=== PATIENT | female | born 1955 | race African-American/Black ===

== ENCOUNTER 2022-02-26 14:24 | Emergency (ER) | payer MEDICAID ==
[~2022-02-26] VITALS: Ht 175.3 cm; Wt 66.4 kg
[2022-02-26] MEDS ORDERED: fentaNYL PF VIAL 100 MCG/2 ML VIAL IV PRN (14:45)
[2022-02-26] MEDS ORDERED: IV NORMAL SALINE 1000ML BAG 1,000 ML IV ONE (14:45)
[2022-02-26] MEDS ORDERED: METOCLOPRAMIDE HCL 10 MG/2 ML VIAL. IVP ONE (14:45)
[2022-02-26] MEDS ORDERED: ONDANSETRON PF 4 MG/2 ML VIAL. IVP ONE (14:45)
--- NOTE | 2022-02-26 15:07 | RAD ---
AP, lateral and oblique views of the right ankle. No comparison is available. Indication: Rolled ankle yesterday now with pain. No fracture, subluxation or dislocation is seen. The ankle mortise is intact. There is lateral soft t issue swelling seen over the lateral malleolus. Cannot exclude ligamentous injury. Impression: Soft tissue swelling laterally, cannot exclude ligamentous injury. Electronically signed by: Luis Benavides MD (02/26/2022 3:05 PM) [facility]
[2022-02-26 15:54] LABS: BASO # 0.1 x10^3/uL (0.0-0.2); BASO % 1 % (0-3); EOS % 0 % (0-3); LYMPH # 0.7 x10^3/uL (1.0-4.8); LYMPH % 10 % (24-48); MEAN CORPUSCULAR HEMOGLOBIN 25 pg (25-35); MEAN CORPUSCULAR HGB CONC 32 g/dL (31-37); MEAN CORPUSCULAR VOLUME 78 fL (79-100); MONO # 0.1 x10^3/uL (0.0-1.1); MONO % 2 % (0-9); NEUT # 6.3 x10^3/uL (1.8-7.7); NEUT % 87 % (31-73); PLATELET COUNT 317 x10^3/uL (140-400); RED BLOOD COUNT 4.35 x10^6/uL (3.50-5.40); WHITE BLOOD COUNT 7.3 x10^3/uL (4.0-11.0)
[2022-02-26 16:06] LABS: CREATININE 0.9 mg/dL (0.6-1.0); GFR 75.8; POTASSIUM 4.2 mmol/L (3.5-5.1)
[2022-02-26] MEDS ORDERED: CONTRAST GIVEN. MC PRN (16:15)
[2022-02-26] MEDS ORDERED: IOHEXOL 300 MG/ML 100ML VIAL. IV ONE (16:15)
[2022-02-26 16:19] LABS: ALBUMIN 3.5 g/dL (3.4-5.0); ALBUMIN/GLOBULIN RATIO 0.8 (1.0-1.7); MAGNESIUM 2.1 mg/dL (1.8-2.4); TOTAL BILIRUBIN 0.5 mg/dL (0.2-1.0)
[2022-02-26 16:35] LABS: BARBITURATES NEG (NEG); BENZODIAZEPINES NEG (NEG); CANNABINOIDS POS (NEG); COCAINE POS (NEG); METHADONE NEG (NEG); OPIATES NEG (NEG); PHENCYCLIDINE NEG (NEG)
[2022-02-26 16:50] LABS: AMPHETAMINE/METHAMPHETAMINE NEG (NEG)
--- NOTE | 2022-02-26 16:52 | RAD ---
EXAMINATION: CT ABDOMEN+PELVIS W. Technique: Axial images with coronal and sagittal reconstructions are performed of abdomen and pelvis with intravenous contrast. 75 mL of Omnipaque 300 was administered intravenously. One or more of the following radiation dose reduction techniques was used: automated exposure control , adjustment of mA and/or KV according to patient size, and/or utilization of iterative reconstructio n technique. HISTORY: 66 years Female Reason: Abdominal pain, N/V / COMPARISON: None. FINDINGS: The lung bases a demonstrate groundglass opacities more on the left side. It is uncertain if this rep resents atelectasis or pneumonitis. The liver, spleen, pancreas and adrenal glands appear unremarkable. The gallbladder demonstrates no c alcified stones. The kidneys have a symmetric enhancement. There is a 6 mm hypodense lesion in the mid the lower from right kidney, too small to accurately characterize. No hydronephrosis. The abdominal aorta is normal in caliber. No para-aortic significantly enlarged lymph node is seen. There is no bowel obstruction. There is diverticulosis in the descending colon. No diverticulitis. Mi ld distention of the stomach is seen with the air-fluid level. This could relate to an recent meal. N o significant dilatation.. The appendix is normal. The uterus and adnexa appear grossly unremarkable. The urinary bladder appear unremarkable. There is no significant free fluid or fluid collection seen in the abdomen or pelvis. The osseous structures demonstrate vacuum phenomenon at L5/S1 disc. IMPRESSION: 1. Nonspecific groundglass opacity seen in the lung bases could relate to atelectasis or atypical pne umonitis. Correlate clinically and with PA and lateral views of the chest. 2. Diverticulosis. No diverticulitis. Electronically signed by: Jules Noe MD (02/26/2022 4:49 PM) [id number]
[2022-02-26 16:59] LABS: BACTERIA,URINE MANY /HPF (0-FEW)
--- NOTE | 2022-02-26 17:47 | RAD ---
XR CHEST 1V INDICATION: cough . COMPARISON STUDY: 02/09/2009. FINDINGS: Life Support Devices: Right IJ Port-A-Cath. Lungs: Normal lung volume. No confluent consolidation. Prominent interstitial marking. Pleura: No pleural effusion or pneumothorax. Heart and Mediastinum: Normal cardiac size. Atherosclerosis of the thoracic aorta. IMPRESSION: Prominent interstitial markings, which could reflect edema or atypical infection in the acute setting . No confluent consolidation. Electronically signed by: Carlos Levin MD (02/26/2022 5:44 PM) [facility]
[2022-02-26 18:07] VITALS: BP 171/98
--- NOTE | 2022-02-26 18:41 | PHYS DOC ---
Past Medical History Additional Past Medical Histor: lung and breast cancer Past Surgical History: No Surgical History Smoking Status: Current Every Day Smoker Additional Information: < 0.5 PPD Alcohol Use: None General Adult EDM: Chief Complaint: ABDOMINAL PAIN HPI: HPI: Patient is a 66 year old female with a history of breast cancer, lung cancer, currently on chemo last treatment 2 weeks ago with Keytruda presenting to the ED today with multiple complaints. Patient states she has had generalized abdominal pain worse at the epigastric, rated at 10 out of 10 described as sharp and intermittent symptoms have been going on since this morning. She is also complaining of nausea and vomiting. She states yesterday she smoked crack and marijuana. She is also complaining of 10 out of 10 right ankle pain that began yesterday after she tripped and rolled her ankle walking down some steps. Patient describes the pain as sharp and intermittent. States the pain is worse on weightbearing though she states she is able to ambulate. Review of Systems: Review of Systems: Constitutional: Denies fever or chills. [] Eyes: Denies change in visual acuity. [] HENT: Denies nasal congestion or sore throat. [] Respiratory: Denies cough or shortness of breath. [] Cardiovascular: Denies chest pain or edema. [] GI: Reports generalized abdominal pain, nausea vomiting, denies any diarrhea : Denies dysuria. [] Musculoskeletal: Reports right ankle pain Integument: Denies rash. [] Neurologic: Denies headache, focal weakness or sensory changes. [] Psychiatric: Denies depression or anxiety. [] Heart Score: C/O Chest Pain: N/A Risk Factors: Risk Factors: DM, Current or recent (<one month) smoker, HTN, HLP, family history of CAD, obesity. Risk Scores: Score 0 - 3: 2.5% MACE over next 6 weeks - Discharge Home Score 4 - 6: 20.3% MACE over next 6 weeks - Admit for Clinical Observation Score 7 - 10: 72.7% MACE over next 6 weeks - Early Invasive Strategies Current Medications: Current Medications Medications (Trade) Dose Ordered Sig/Jayla Start Time Stop Time Status Last Admin Dose Admin Fentanyl Citrate (Fentanyl 2ml Vial) 50 mcg PRN Q15MIN PRN 02/26/22 14:45 02/27/22 14:44 02/26/22 15:52 50 MCG Info (CONTRAST GIVEN -- Rx MONITORING) 1 each PRN DAILY PRN 02/26/22 16:15 02/28/22 16:14 Iohexol (Omnipaque 300 Mg/ml) 75 ml 1X ONCE 02/26/22 16:15 02/26/22 16:16 DC 02/26/22 16:30 75 ML Metoclopramide HCl (Reglan Vial) 10 mg 1X ONCE 02/26/22 14:45 02/26/22 14:51 DC 02/26/22 15:52 10 MG Ondansetron HCl (Zofran) 4 mg 1X ONCE 02/26/22 14:45 02/26/22 14:51 DC 02/26/22 15:52 4 MG Sodium Chloride 1,000 ml @ 1,000 mls/hr 1X ONCE 02/26/22 14:45 02/26/22 15:44 DC 02/26/22 15:53 1,000 MLS/HR Allergies: Allergies: Allergies Coded Allergies Type Severity Reaction Last Updated Verified No Known Drug Allergies 02/26/22 No Physical Exam: PE: Constitutional: Well developed, well nourished, no acute distress, non-toxic appearance. [] HENT: Normocephalic, atraumatic, bilateral external ears normal, oropharynx moist, no oral exudates, nose normal. [] Eyes: PERRLA, EOMI, conjunctiva normal, no discharge. [] Neck: Normal range of motion, no tenderness, supple, no stridor. [] Cardiovascular:Heart rate regular rhythm, no murmur [] Lungs & Thorax: Bilateral breath sounds clear to auscultation [] Abdomen: Bowel sounds normal, soft, diffuse tenderness throughout the abdomen, negative Nails sign, negative psoas sign, negative obturator sign, no masses, no pulsatile masses. [] Skin: Warm, dry, no erythema, no rash. [] Back: No tenderness, no CVA tenderness. [] Extremities: Right lower extremity with no obvious deformity, soft tissue swelling noted on the right lateral ankle with tenderness over the region, full range of motion to the right ankle, foot and toes. +2 right pedal pulse. Cap refill less than 2 seconds the right lower extremity Neurologic: Alert and oriented X 3, normal motor function, normal sensory function, no focal deficits noted. [] Psychologic: Tearful, crying out loud Current Patient Data: Labs: Laboratory Tests Test 02/26/22 15:35 02/26/22 16:00 02/26/22 17:43 White Blood Count 7.3 x10^3/uL (4.0-11.0) Red Blood Count 4.35 x10^6/uL (3.50-5.40) Hemoglobin 11.0 g/dL (12.0-15.5) L Hematocrit 34.0 % (36.0-47.0) L Mean Corpuscular Volume 78 fL (79-100) L Mean Corpuscular Hemoglobin 25 pg (25-35) Mean Corpuscular Hemoglobin Concent 32 g/dL (31-37) Red Cell Distribution Width 15.0 % (11.5-14.5) H Platelet Count 317 x10^3/uL (140-400) Neutrophils (%) (Auto) 87 % (31-73) H Lymphocytes (%) (Auto) 10 % (24-48) L Monocytes (%) (Auto) 2 % (0-9) Eosinophils (%) (Auto) 0 % (0-3) Basophils (%) (Auto) 1 % (0-3) Neutrophils # (Auto) 6.3 x10^3/uL (1.8-7.7) Lymphocytes # (Auto) 0.7 x10^3/uL (1.0-4.8) L Monocytes # (Auto) 0.1 x10^3/uL (0.0-1.1) Eosinophils # (Auto) 0.0 x10^3/uL (0.0-0.7) Basophils # (Auto) 0.1 x10^3/uL (0.0-0.2) Sodium Level 136 mmol/L (136-145) Potassium Level 4.2 mmol/L (3.5-5.1) Chloride Level 100 mmol/L (98-107) Carbon Dioxide Level 26 mmol/L (21-32) Anion Gap 10 (6-14) Blood Urea Nitrogen 18 mg/dL (7-20) Creatinine 0.9 mg/dL (0.6-1.0) Estimated GFR (Cockcroft-Gault) 75.8 BUN/Creatinine Ratio 20 (6-20) Glucose Level 144 mg/dL (70-99) H Calcium Level 9.0 mg/dL (8.5-10.1) Magnesium Level 2.1 mg/dL (1.8-2.4) Total Bilirubin 0.5 mg/dL (0.2-1.0) Aspartate Amino Transferase (AST) 16 U/L (15-37) Alanine Aminotransferase (ALT) 25 U/L (14-59) Alkaline Phosphatase 78 U/L (46-116) Troponin I High Sensitivity 34 ng/L (4-50) 30 ng/L (4-50) PU-Byq-I-Type Natriuretic Peptide 123 pg/mL (0-124) Total Protein 8.0 g/dL (6.4-8.2) Albumin 3.5 g/dL (3.4-5.0) Albumin/Globulin Ratio 0.8 (1.0-1.7) L Thyroid Stimulating Hormone (TSH) 0.428 uIU/mL (0.358-3.74) Urine Collection Type Unknown Urine Color (Auto) Light yellow Urine Turbidity Hazy Urine pH (Auto) 7.0 (<5.0-8.0) Urine Specific Spencer 1.019 (1.000-1.030) Urine Protein (Auto) Negative mg/dL (Negative) Urine Glucose (Auto)(UA) Negative mg/dL (Negative) Urine Ketones (Auto) Negative mg/dL (Negative) Urine Blood (Auto) Negative (Negative) Urine Nitrite Negative (Negative) Urine Bilirubin (Auto) Negative (Negative) Urine Urobilinogen (Auto) Normal mg/dL (Normal) Urine Leukocyte Esterase (Auto) Negative (Negative) Urine RBC 1-2 /HPF (0-2) Urine WBC 1-4 /HPF (0-4) Urine Squamous Epithelial Cells Mod /LPF Urine Bacteria Many /HPF (0-FEW) Urine Opiates Screen Neg (NEG) Urine Methadone Screen Neg (NEG) Urine Barbiturates Neg (NEG) Urine Phencyclidine Screen Neg (NEG) Urine Amphetamine/Methamphetamine Neg (NEG) Urine Benzodiazepines Screen Neg (NEG) Urine Cocaine Screen Pos (NEG) Urine Cannabinoids Screen Pos (NEG) Urine Ethyl Alcohol Neg (NEG) Laboratory Tests 02/26/22 15:35 Laboratory Tests 02/26/22 15:35 Vital Signs: Vital Signs Date Time Temp Pulse Resp B/P (MAP) Pulse Ox O2 Delivery O2 Flow Rate FiO2 02/26/22 18:07 80 25 171/98 (122) 100 Room Air 02/26/22 14:28 97.7 97.7 EKG: EK interpreted by Dr. Hammonds sinus rhythm heart rate 81 no STEMI Radiology/Procedures: Radiology/Procedures: []PROCEDURE: PORTABLE CHEST 1V XR CHEST 1V INDICATION: cough . COMPARISON STUDY: 02/09/2009. FINDINGS: Life Support Devices: Right IJ Port-A-Cath. Lungs: Normal lung volume. No confluent consolidation. Prominent interstitial marking. Pleura: No pleural effusion or pneumothorax. Heart and Mediastinum: Normal cardiac size. Atherosclerosis of the thoracic aorta. IMPRESSION: Prominent interstitial markings, which could reflect edema or atypical infection in the acute setting. No confluent consolidation. Electronically signed by: Valentin Levin MD (02/26/2022 5:44 PM) [facility] DICTATED and SIGNED BY: VALENTIN LEVIN MD DATE: 02/26/22 174 PROCEDURE: ANKLE RIGHT 3V AP, lateral and oblique views of the right ankle. No comparison is available. Indication: Rolled ankle yesterday now with pain. No fracture, subluxation or dislocation is seen. The ankle mortise is intact. There is lateral soft tissue swelling seen over the lateral malleolus. Cannot exclude ligamentous injury. Impression: Soft tissue swelling laterally, cannot exclude ligamentous injury. Electronically signed by: Luis Benavides MD (02/26/2022 3:05 PM) [facility] DICTATED and SIGNED BY: LUIS BENAVIDES MD DATE: 02/26/22 1504 PROCEDURE: CT ABD PELV W/ IV CONTRST ONLY EXAMINATION: CT ABDOMEN+PELVIS W. Technique: Axial images with coronal and sagittal reconstructions are performed of abdomen and pelvis with intravenous contrast. 75 mL of Omnipaque 300 was administered intravenously. One or more of the following radiation dose reduction techniques was used: automated exposure control, adjustment of mA and/or KV according to patient size, and/or utilization of iterative reconstruction technique. HISTORY: 66 years Female Reason: Abdominal pain, N/V / COMPARISON: None. FINDINGS: The lung bases a demonstrate groundglass opacities more on the left side. It is uncertain if this represents atelectasis or pneumonitis. The liver, spleen, pancreas and adrenal glands appear unremarkable. The gallbladder demonstrates no calcified stones. The kidneys have a symmetric enhancement. There is a 6 mm hypodense lesion in the mid the lower from right kidney, too small to accurately characterize. No hydronephrosis. The abdominal aorta is normal in caliber. No para-aortic significantly enlarged lymph node is seen. There is no bowel obstruction. There is diverticulosis in the descending colon. No diverticulitis. Mild distention of the stomach is seen with the air-fluid level. This could relate to an recent meal. No significant dilatation.. The appendix is normal. The uterus and adnexa appear grossly unremarkable. The urinary bladder appear unremarkable. There is no significant free fluid or fluid collection seen in the abdomen or pelvis. The osseous structures demonstrate vacuum phenomenon at L5/S1 disc. IMPRESSION: 1. Nonspecific groundglass opacity seen in the lung bases could relate to atelectasis or atypical pneumonitis. Correlate clinically and with PA and la teral views of the chest. 2. Diverticulosis. No diverticulitis. Electronically signed by: Troy Noe MD (02/26/2022 4:49 PM) [id number] DICTATED and SIGNED BY: TROY NOE MD DATE: 02/26/22 1643 Course & Med Decision Making: Course & Med Decision Making Pertinent Labs and Imaging studies reviewed. (See chart for details) This a 66-year-old female patient presenting to the ED today complaining of generalized abdominal pain worse at the epigastric region, symptoms of been going on since yesterday. Also complaining of nausea, vomiting, and using crack and marijuana yesterday. Also complaining of right ankle pain that began yesterday after she rolled her ankle Right ankle x-rays are negative for any acute findings, noted for soft tissue swelling. Burton bandage applied to the right ankle by the ED RN, neurovascular exam done by the RN is normal. CBC with a normal WBC, hemoglobin 11.0 with hematocrit of 34.0, patient reports history of anemia, CMP with glucose of 144, anion gap is normal, CO2 is normal, 2 high-sensitivity troponins, EKG, lipase-no acute findings. CT of the abdomen and pelvis was noted for nonspecific groundglass opacity seen in the lung bases could relate to atelectasis or atypical pneumonitis. Correlate clinically and with PA and lateral views of the chest. Diverticulosis. No diverticulitis. Chest x-ray was done noted for prominent interstitial markings, which could reflect edema or atypical infection in the acute setting. No confluent consolidation.-Patient has no cough, shortness of breath. UDS positive for marijuana and cocaine Patient feeling better, requesting to go home. Discharged with instructions to follow-up with her own PCP as well as cancer doctor at . Provided return precautions. Discouraged from using drugs. Dragon Disclaimer: Dragon Disclaimer: This electronic medical record was generated, in whole or in part, using a voice recognition dictation system. Departure Departure Impression: Primary Impression: Abdominal pain Qualified Codes: R10.84 - Generalized abdominal pain Additional Impressions: Right ankle sprain Qualified Codes: S93.401A - Sprain of unspecified ligament of right ankle, initial encounter Diverticulosis Drug abuse Disposition: HOME / SELF CARE / HOMELESS Condition: STABLE Referrals: NO PCP (PCP) Follow-up with your cancer doctor as well as primary care doctor in the course of this week Patient Instructions: Abdominal Pain (Nonspecific), Ankle Sprain, Drug Abuse, FAQs Additional Instructions: You were evaluated in the emergency room. Your cardiac work-up as well as abdominal work-up are negative for any acute findings, your right ankle x-rays are negative for any acute findings. Please follow-up with the orthopedic doctor provided for ankle pain. Follow-up with your primary care doctor as well as cancer doctor at as soon as you can. Come back to the ED at any point symptoms worsen BERNARD GUZMAN APRN Feb 26, 2022 18:41
[2022-02-26] MEDS ORDERED: HEPARIN PF 500 UNIT/5 ML DISP.SYRIN. IVP ONE ×2 (19:00)
--- NOTE | 2022-02-26 19:42 | EKG ---
[facility] [address] [place] [address] Test Date: 2022-02-26 Test Time: 15:25:19 Pat Name: KEL VARGAS Department: Room: Gender: F Schedule Checker: : 1955 Requested By: BERNARD GUZMAN Order Number: [id number] Reading MD: Neal Martinez Measurements Intervals [place] Rate: 81 P: 64 WA: 164 QRS: 47 QRSD: 76 T: 86 QT: 372 QTc: 433 Interpretive Statements SINUS RHYTHM T ABNORMALITY IN ANTERIOR LEADS Electronically Signed On 02-28-2022 18:18:40 CDT by Neal Martinez
== END 2022-02-26 19:06 | disposition home or self-care (01) ==
LOC: ER 14:24
DX: S93.401A Sprain of unspecified ligament of right ankle, initial encounter (principal); F17.200 Nicotine dependence, unspecified, uncomplicated; R10.84 Generalized abdominal pain; R10.13 Epigastric pain; R07.89 Other chest pain; K57.90 Diverticulosis of intestine, part unspecified, without perforation or abscess without bleeding; F12.10 Cannabis abuse, uncomplicated; W18.49XA Other slipping, tripping and stumbling without falling, initial encounter; Y93.01 Activity, walking, marching and hiking; Y92.89 Other specified places as the place of occurrence of the external cause; Y99.8 Other external cause status
CPT/HCPCS: 36415; 71045; 73610; 74177; 80053; 80307; 81001; 83735; 83880; 84443; 84484; 85025; 87077; 87086; 87186; 93005; 96361; 96374; 96375; 99285; J1642; J2405; J2765; J3010; J7030; Q9967